=== PATIENT | male | born 1945 | race Caucasian/White ===

== ENCOUNTER 2017-11-09 14:07 | Emergency (ER) | payer OTHER ==
[~2017-11-09] VITALS: Ht 175.3 cm; Wt 104.0 kg
[~2017-11-09 14:07] MED LIST: ADAL1INJ SQ; CHOL10008 PO; GLIP5TAB8 PO; LANTUS2P SQ; LISI-519 PO; METF-382 PO; PRAV20TA2 PO
[2017-11-09 14:11] VITALS: BP 170/77; PULSE 65; RESP 18; TEMP 97.7; O2SAT 95
[2017-11-09] MEDS ORDERED: GLIP1TAB51 PO (14:23)
[2017-11-09] MEDS ORDERED: ACYCLOVIR 800 MG TAB PO ONE (14:30)
[2017-11-09] MEDS ORDERED: CEPHALEXIN MONOHYDRATE 500 MG CAP PO ONE (14:30)
--- NOTE | 2017-11-09 14:40 | PD ---
HPI Chief Complaint: Skin Problem Time Seen by Provider: 14:19 Travel History International Travel<30 days: No Contact w/Intl Traveler<30days: No Traveled to known affect area: No History of Present Illness HPI 72-year-old male presents emergency department evaluation of a rash on his left forearm and hand that started approximately 2 days ago. Patient states that he has been forming blisters on the underside of his arm and hand and has been severely painful. Patient states that he has had shooting pain up and down his arm and says he has had a hard time working because of his pain. He denies fever, chills, nausea, vomiting, diarrhea. She denies any prodromal symptoms such as malaise or fatigue. Says he has taken [id number] anti- inflammatories without relief. He denies any history of chemical exposure. Denies new soaps, lotions, medications, or foods. Patient said that he has had the flu and pneumonia vaccine. Denies history of shingles vaccination. He believes he did have chickenpox in his youth. He has a history of psoriasis and was previously on Humira. Says he would last on Humira approximately 2 months ago and is in the process of beginning another cycle this medication for his psoriasis. PFSH Past Medical History Autoimmune Disease: No Cancer: No Cardiovascular Problems: Yes (RBBB) High Cholesterol: Yes Diabetes: Yes Endocrine: Yes Genitourinary: No Hepatitis: No Hiatal Hernia: No Hypertension: Yes Immune Disorder: No Kidney Stones: Yes Musculoskeletal: No Neurologic: No Psychiatric: No Reproductive: No Respiratory: No Renal Failure: Yes (STAGE 1) Sickle Cell Disease: No Thyroid Disease: No ?: Not Past Surgical History AICD: No Body Medical Devices: LEFT URETERAL STENT Genitourinary Surgery: Yes (CYSTO, LEFT URETERAL STENT) Joint Replacement: No Oral Surgery: Yes (T & A) Pacemaker: No Social History Alcohol Use: No Tobacco Use: No Substance Use: No Allergies-Medications (Allergen,Severity, Reaction): Coded Allergies: No Known Allergies (Unverified Adverse Reaction, Unknown, 11/09/17) Reported Meds & Prescriptions Reported Meds & Active Scripts Active Gabapentin 300 Mg Cap 300 Mg PO TID 7 Days Acyclovir 800 Mg Tab 800 Mg PO 5 TIMES A DAY 7 Days Keflex (Cephalexin) 500 Mg Cap 500 Mg PO Q8H 7 Days Reported Glipizide ER (Glipizide) 10 Mg Bhavna 10 Mg PO DAILY Take with breakfast or first main meal of the day Lisinopril 5 Mg Tab 10 Mg PO DAILY Pravastatin 20 Mg Tab 10 Mg PO HS Metformin ER (Metformin HCl) 1,000 Mg Bhavna 1,000 Mg PO BID With evening meal Lantus Inj (Insulin Glargine) 1,000 Unit/10 Ml Vial 30 Units SQ HS Vitamin D3 (Cholecalciferol) 1,000 Unit Cap 1,000 Units PO DAILY Review of Systems Except as stated in HPI: all other systems reviewed are Neg Physical Exam Narrative GENERAL: Well-nourished, well-developed patient. SKIN: Focused skin assessment warm/dry. Right arm-medial aspect of forearm and right upper extremity with small 2-3 cm patches of vesicles of different sizes over erythematous base. A new patch appears to be forming on the upper medial mid arm. There is no evidence of extension of the erythema suggesting cellulitis or lymphangitic spread. There are 3-4 areas on the palmar surface with blistering. HEAD: Normocephalic. EYES: No scleral icterus. No injection or drainage. NECK: Supple, trachea midline. No JVD or lymphadenopathy. CARDIOVASCULAR: Regular rate and rhythm without murmurs, gallops, or rubs. RESPIRATORY: Breath sounds equal bilaterally. No accessory muscle use. MUSCULOSKELETAL: No cyanosis, or edema. BACK: Nontender without obvious deformity. No CVA tenderness. Data Data Last Documented VS Vital Signs Date Time Temp Pulse Resp B/P (MAP) Pulse Ox O2 Delivery O2 Flow Rate FiO2 11/09/17 14:11 97.7 65 18 170/77 (108) 95 Orders Orders Cephalexin (Keflex) (11/09/17 14:30) Acyclovir (Zovirax) (11/09/17 14:30) Ed Discharge Order (11/09/17 14:44) MDM Medical Decision Making Medical Screen Exam Complete: Yes Emergency Medical Condition: Yes Differential Diagnosis Herpes zoster, chickenpox, contact dermatitis Narrative Course 72-year-old male presents emergency department evaluation of a rash on his left forearm and hand that started approximately 2 days ago. Patient states that he has been forming blisters on the underside of his arm and hand and has been severely painful. Patient states that he has had shooting pain up and down his arm and says he has had a hard time working because of his pain. He denies fever, chills, nausea, vomiting, diarrhea. She denies any prodromal symptoms such as malaise or fatigue. Says he has taken [id number] anti- inflammatories without relief. He denies any history of chemical exposure. Denies new soaps, lotions, medications, or foods. Patient said that he has had the flu and pneumonia vaccine. Denies history of shingles vaccination. He believes he did have chickenpox in his youth. He has a history of psoriasis and was previously on Humira. Says he would last on Humira approximately 2 months ago and is in the process of beginning another cycle this medication for his psoriasis. History and physical consistent with herpes zoster. Patient does have a possible immunocompromised status because of his history of using Humira for his psoriasis. In addition, his states that he has had significant cellulitis resulting in sepsis previously. I will cover the patient with acyclovir and Keflex. Gabapentin for the herpetic neuralgia. Advised to use caution when taking gabapentin as it may make him feel drowsy. Avoid heavy equipment use. Patient to avoid contact with others until all lesions have scabbed and fallen off. Patient should follow-up with primary care physician within 1 week. Advised to return to the emergency department for worsening or persistent symptoms. Diagnosis Primary Impression: Shingles Qualified Codes: B02.8 - Zoster with other complications Referrals: Primary Care Physician Departure Forms: Tests/Procedures, Work Release Enter return to work date: Nov 13, 2017 Additional Instructions: Avoid contact with others as you are contagious. He will be contagious until the last blister scabs and falls off. Your rash will likely worsen over the next couple of days but should improve with acyclovir. Use caution when taking gabapentin as this may make you feel drowsy. Take all medications as prescribed. Follow-up with primary care physician within 1 week. Return to the emergency department for worsening or persistent symptoms. Scripts Gabapentin (Gabapentin) 300 Mg Cap 300 MG PO TID for Pain Management for 7 Days, #21 CAP 0 Refills Prov: Ted Vizcarra MD 11/09/17 Acyclovir (Acyclovir) 800 Mg Tab 800 MG PO 5 TIMES A DAY for Mgmt Viral Infection for 7 Days, TAB 0 Refills Prov: Ted Vizcarra MD 11/09/17 Cephalexin (Keflex) 500 Mg Cap 500 MG PO Q8H for Infection for 7 Days, #21 CAP 0 Refills Prov: Ted Vizcarra MD 11/09/17 Disposition: 01 DISCHARGE HOME Condition: Stable Ngozi Schulte Nov 09, 2017 14:40
[2017-11-09] MEDS ORDERED: CEPH-460 PO (14:42)
[2017-11-09] MEDS ORDERED: ACYC800T PO (14:42)
[2017-11-09] MEDS ORDERED: GABA300C5 PO (14:42)
== END 2017-11-09 15:05 | disposition home or self-care (01) ==
LOC: PHEFT 14:07
DX: B02.9 Zoster without complications (principal); I45.10 Unspecified right bundle-branch block; E78.00 Pure hypercholesterolemia, unspecified; E11.9 Type 2 diabetes mellitus without complications; I10 Essential (primary) hypertension; Z79.4 Long term (current) use of insulin
CPT/HCPCS: 99283